=== PATIENT | female | born 1930 | race Caucasian/White ===

== ENCOUNTER 2017-09-16 10:38 | Emergency (ER) | payer MEDICARE, OTHER ==
[~2017-09-16] VITALS: Ht 152.4 cm; Wt 68.0 kg
[~2017-09-16 10:38] MED LIST: AMLO-512 PO; APIX5TAB PO; ASPI-1182 PO; LEVO125T95 PO; METO25 PO; ROSU10 PO; VITAD1000 PO
[2017-09-16 10:56] VITALS: BP 127/60
[2017-09-16] MEDS ORDERED: VITAD1000 PO (11:04)
[2017-09-16] MEDS ORDERED: FURO40I IM (11:04)
[2017-09-16] MEDS ORDERED: RIVA15T PO (11:04)
[2017-09-16] MEDS ORDERED: DiphenhydrAMINE HCL 25 MG CAPSULE PO ONE (11:45)
[2017-09-16] MEDS ORDERED: PredniSONE 20 MG TABLET PO ONE (11:45)
== END 2017-09-16 13:16 | disposition home or self-care (01) ==
LOC: EMS 10:46
DX: L27.0 Generalized skin eruption due to drugs and medicaments taken internally (principal); I11.0 Hypertensive heart disease with heart failure; I50.9 Heart failure, unspecified; I25.10 Atherosclerotic heart disease of native coronary artery without angina pectoris; I25.2 Old myocardial infarction; E03.9 Hypothyroidism, unspecified; E78.00 Pure hypercholesterolemia, unspecified; J44.9 Chronic obstructive pulmonary disease, unspecified; Z87.891 Personal history of nicotine dependence
CPT/HCPCS: 99283; J7512